=== PATIENT | female | born 1945 | race Caucasian/White ===

== ENCOUNTER 2016-11-21 10:07 | Emergency (ER) | payer MEDICARE, OTHER ==
[~2016-11-21 10:07] MED LIST: AMB10 PO; ATV1 PO; CALTRAT600 PO; GLUCCHONDR PO; HYZAAR 50/12.51 TAB PO; MULTIVITAMI1 PO; NORV5 PO; PLAQ200B PO; PRILO PO; SALAGEN5 M1 PO
== END 2016-11-21 10:54 | disposition home or self-care (01) ==
LOC: ER 10:07
DX: S01.511A Laceration without foreign body of lip, initial encounter (principal); I10 Essential (primary) hypertension; K21.9 Gastro-esophageal reflux disease without esophagitis; D64.9 Anemia, unspecified; Z88.5 Allergy status to narcotic agent; Z79.899 Other long term (current) drug therapy; W22.03XA Walked into furniture, initial encounter
CPT/HCPCS: 99283